=== PATIENT | female | born 1990 | race Asian ===

== ENCOUNTER → 2018-03-02 | Emergency (ER) | payer OTHER ==
[~2018-03-02] VITALS: Ht 157.5 cm; Wt 47.6 kg
== END | disposition left against medical advice (07) ==
LOC: ER 09:34
DX: Z53.20 Procedure and treatment not carried out because of patient's decision for unspecified reasons (principal)

== ENCOUNTER 2021-09-22 17:55 | Day surgery (SDC) | payer OTHER ==
[~2021-09-22] VITALS: Ht 157.5 cm; Wt 47.2 kg
[2021-09-23] MEDS ORDERED: ACETAMINOPHEN-1 EAC2 PO (12:55)
[2021-09-23] MEDS ORDERED: IBU600 MG PO (12:55)
== END 2021-09-23 12:47 | disposition home or self-care (01) ==
LOC: CIR.AMB 17:55 → SEC-K 09-23 09:11 → ER 09-23 09:11 → O/R 09-23 09:11 → EDSTATUS 09-23 10:30 → CIR.AMB 09-23 12:47 → O/R 09-23 20:26 → SEC-K 09-23 20:26
PROVIDERS: ATTEND Obstetrics & Gynecology
DX: O00.101 Right tubal pregnancy without intrauterine pregnancy (principal); K66.1 Hemoperitoneum; Z20.822 Contact with and (suspected) exposure to COVID-19